=== PATIENT | female | born 1985 | race African-American/Black ===

== ENCOUNTER 2019-08-26 12:59 | Observation (INO) | payer MEDICAID ==
[~2019-08-26] VITALS: Ht 170.2 cm; Wt 92.5 kg
[2019-08-26] MEDS ORDERED: PREN1TAB78 MT (14:23)
[2019-08-26 14:52] LABS: CLARITY URINE CLEAR (CLEAR); COLOR URINE YELLOW (YELLOW); KETONES URINE NEGATIVE (NEGATIVE); LEUKOCYTE ESTERASE URINE 1+ (NEGATIVE); NITRITE URINE NEGATIVE (NEGATIVE); OCCULT BLOOD URINE NEGATIVE (NEGATIVE); PROTEIN URINE NEGATIVE (NEGATIVE); SPECIFIC GRAVITY URINE 1.024 (1.005-1.030)
== END 2019-08-26 15:45 | disposition home or self-care (01) ==
LOC: 8 EST LDRP 12:59
PROVIDERS: ADMIT Obstetrics & Gynecology; ATTEND Obstetrics & Gynecology
DX: O26.893 Other specified pregnancy related conditions, third trimester (principal); R10.30 Lower abdominal pain, unspecified; Z3A.20 20 weeks gestation of pregnancy
CPT/HCPCS: 81003; 99281; G0378

== ENCOUNTER 2019-09-24 12:06 | Emergency (ER) | payer MEDICAID ==
[~2019-09-24] VITALS: Ht 167.6 cm; Wt 84.0 kg
[~2019-09-24 12:06] MED LIST: PREN1TAB78 MT
[2019-09-24] MEDS ORDERED: SODIUM CHLORIDE 0.9% 1,000 ML IV ONE (12:24)
[2019-09-24] MEDS ORDERED: DILTIAZEM HCL 5MG/ML 5ML VIAL IV ONE (12:30)
[2019-09-24 12:47] LABS: BASOPHILS % 0.4 % (0.0-2.0); EOSINOPHILS % 0.7 % (0.0-5.0); HEMATOCRIT. 33.1 % (36.0-48.0); HEMOGLOBIN. 10.9 g/dL (12.0-16.0); LYMPHOCYTES % 18.9 % (20.0-50.0); MEAN CORPUSCULAR HEMOGLOBIN 27.8 pg (28.0-32.0); MEAN CORPUSCULAR VOLUME 84.4 fL (81.0-99.0); MEAN PLATELET VOLUME 9.3 fl (7.4-10.4); MONOCYTES % 7.9 % (2.0-8.0); NEUTROPHILS % 72.1 % (40.0-76.0); PLATELET 217 x1000/uL (130-400); RED BLOOD CELL COUNT 3.93 mill/uL (4.2-5.4)
[2019-09-24 12:54] LABS: CHLORIDE 113 mEq/L (98-107)
[2019-09-24 12:58] LABS: PROTHROMBIN TIME 10.2 sec (9.6-11.0)
[2019-09-24 13:18] LABS: CLARITY URINE CLEAR (CLEAR); COLOR URINE YELLOW (YELLOW); KETONES URINE NEGATIVE (NEGATIVE); LEUKOCYTE ESTERASE URINE TRACE (NEGATIVE); NITRITE URINE NEGATIVE (NEGATIVE); OCCULT BLOOD URINE NEGATIVE (NEGATIVE); PROTEIN URINE NEGATIVE (NEGATIVE); SPECIFIC GRAVITY URINE 1.005 (1.005-1.030); UROBILINOGEN URINE 0.2 E.U./dL (0.2-1.0)
[2019-09-24 16:30] VITALS: BP 131/71
== END 2019-09-24 16:44 | disposition home or self-care (01) ==
LOC: ER 12:06
DX: O99.412 Diseases of the circulatory system complicating pregnancy, second trimester (principal); I47.1 Supraventricular tachycardia; Z3A.24 24 weeks gestation of pregnancy
CPT/HCPCS: 36415; 76805; 80053; 81003; 83880; 84484; 85025; 85610; 93005; 96374; 99285; J3490; J7030

== ENCOUNTER 2019-10-03 21:43 | Observation (INO) | payer MEDICAID ==
[2019-10-03] MEDS ORDERED: PREN-182 PO (23:42)
== END 2019-10-04 00:15 | disposition home or self-care (01) ==
LOC: 8 EST LDRP 21:43
PROVIDERS: ADMIT Obstetrics & Gynecology; ATTEND Obstetrics & Gynecology
DX: O26.92 Pregnancy related conditions, unspecified, second trimester (principal); Z3A.26 26 weeks gestation of pregnancy
CPT/HCPCS: 99281; G0378

== ENCOUNTER 2024-10-27 11:50 | Emergency (ER) | payer MEDICAID ==
[~2024-10-27] VITALS: Ht 160 cm; Wt 77.0 kg
[~2024-10-27 11:50] MED LIST changes: +PREN-182 PO
[2024-10-27 11:57] VITALS: O2SAT 98
[2024-10-27 12:36] LABS: BASOPHILS % 0.6 % (0.0-2.0); EOSINOPHILS % 1.6 % (0.0-5.0); HEMATOCRIT. 35.4 % (36.0-48.0); HEMOGLOBIN. 11.5 g/dL (12.0-16.0); LYMPHOCYTES % 22.3 % (20.0-50.0); MEAN PLATELET VOLUME 9.4 fl (7.4-10.4); MONOCYTES % 8.1 % (2.0-8.0); NEUTROPHILS % 67.4 % (40.0-76.0); PLATELET 238 x1000/uL (130-400); RED BLOOD CELL COUNT 4.28 mill/uL (4.2-5.4); RED CELL DISTRIBUTION WIDTH 14.3 % (11.6-14.6)
[2024-10-27 12:47] LABS: CLARITY URINE CLOUDY (CLEAR); COLOR URINE YELLOW (YELLOW); GLUCOSE URINE NEGATIVE (NEGATIVE); KETONES URINE TRACE (NEGATIVE); LEUKOCYTE ESTERASE URINE 3+ (NEGATIVE); NITRITE URINE NEGATIVE (NEGATIVE); OCCULT BLOOD URINE 2+ (NEGATIVE); PH URINE 7.0 (4.5-8.0); PROTEIN URINE 1+ (NEGATIVE); SPECIFIC GRAVITY URINE 1.018 (1.005-1.030); UROBILINOGEN URINE 1.0 E.U./dL (0.2-1.0)
[2024-10-27 12:55] LABS: HCG SCREEN POSITIVE
[2024-10-27 13:03] LABS: CREATININE 0.8 mg/dL (0.6-1.0); UREA NITROGEN BLOOD 8 mg/dL (9-23)
[2024-10-27 13:08] LABS: BACTERIA URINE 3+; SQUAMOUS EPITHELIAL CELL URINE 3+ /lpf (RARE/1+); WBC URINE TNTC /hpf (0-2); YEAST URINE NONE SEEN
[2024-10-27 13:16] LABS: B-HCG QUANTITATIVE 93752 mIU/mL (<6)
[2024-10-27 14:10] VITALS: BP 138/68; PULSE 65; RESP 12; TEMP 36.8; O2SAT 98
== END 2024-10-27 14:13 | disposition home or self-care (01) ==
LOC: ER 11:50
DX: O20.0 Threatened abortion (principal); Z3A.01 Less than 8 weeks gestation of pregnancy
CPT/HCPCS: 36415; 76801; 80048; 81003; 81025; 84702; 84703; 85025; 86850; 86900; 99284

== ENCOUNTER 2024-10-29 15:21 | Emergency (ER) | payer MEDICAID ==
[~2024-10-29] VITALS: Ht 170.2 cm; Wt 100.0 kg
[2024-10-29 15:40] VITALS: O2SAT 95
[2024-10-29 16:16] LABS: COLOR URINE YELLOW (YELLOW); GLUCOSE URINE NEGATIVE (NEGATIVE); KETONES URINE TRACE (NEGATIVE); LEUKOCYTE ESTERASE URINE 1+ (NEGATIVE); NITRITE URINE NEGATIVE (NEGATIVE); OCCULT BLOOD URINE NEGATIVE (NEGATIVE); PH URINE 6.0 (4.5-8.0); PROTEIN URINE NEGATIVE (NEGATIVE); SPECIFIC GRAVITY URINE 1.025 (1.005-1.030); UROBILINOGEN URINE 1.0 E.U./dL (0.2-1.0)
[2024-10-29 16:28] LABS: CREATININE 0.8 mg/dL (0.6-1.0); UREA NITROGEN BLOOD 11 mg/dL (9-23)
[2024-10-29 16:30] LABS: ASPARTATE AMINOTRANSFERASE 15 IU/L (<34); BILIRUBIN DIRECT < 0.1 mg/dL (<=3.0); BILIRUBIN TOTAL 0.3 mg/dL (0.1-1.0); PROTEIN TOTAL 7.2 g/dL (6.0-8.3)
[2024-10-29 16:33] LABS: BASOPHILS % 0.8 % (0.0-2.0); EOSINOPHILS % 2.1 % (0.0-5.0); HEMATOCRIT. 38.1 % (36.0-48.0); HEMOGLOBIN. 12.5 g/dL (12.0-16.0); LYMPHOCYTES % 23.9 % (20.0-50.0); MEAN PLATELET VOLUME 9.5 fl (7.4-10.4); MONOCYTES % 8.2 % (2.0-8.0); NEUTROPHILS % 65.0 % (40.0-76.0); PLATELET 242 x1000/uL (130-400); RED BLOOD CELL COUNT 4.63 mill/uL (4.2-5.4); RED CELL DISTRIBUTION WIDTH 14.4 % (11.6-14.6)
[2024-10-29 16:39] LABS: CLARITY URINE HAZY (CLEAR)
[2024-10-29 16:44] LABS: B-HCG QUANTITATIVE 94397 mIU/mL (<6)
[2024-10-29 16:55] LABS: BACTERIA URINE 1+; RBC URINE NONE SEEN /hpf (0-2); SQUAMOUS EPITHELIAL CELL URINE 2+ /lpf (RARE/1+)
[2024-10-29] MEDS: ACETAMINOPHEN 325MG TABLET PO ONE (17:18)
[2024-10-29] MEDS ORDERED: CEPH500T MT (17:21)
[2024-10-29 19:16] VITALS: BP 149/95; PULSE 86; RESP 12; TEMP 36.8; O2SAT 100
== END 2024-10-29 19:21 | disposition home or self-care (01) ==
LOC: ER 15:21
DX: O26.891 Other specified pregnancy related conditions, first trimester (principal); O23.41 Unspecified infection of urinary tract in pregnancy, first trimester; R10.9 Unspecified abdominal pain; Z3A.12 12 weeks gestation of pregnancy
CPT/HCPCS: 36415; 76801; 80048; 80076; 81003; 84702; 85025; 86850; 86900; 99284

== ENCOUNTER 2025-01-18 11:48 | Emergency (ER) | payer MEDICAID ==
[~2025-01-18] VITALS: Ht 167.6 cm; Wt 96.0 kg
[~2025-01-18 11:48] MED LIST changes: +CEPH500T MT
[2025-01-18 11:53] VITALS: BP 146/50; TEMP 36.5; O2SAT 100
[2025-01-18 12:07] VITALS: PULSE 93; RESP 18; O2SAT 99
[2025-01-18 13:59] LABS: BASOPHILS % 0.6 % (0.0-2.0); EOSINOPHILS % 1.1 % (0.0-5.0); HEMATOCRIT. 32.2 % (36.0-48.0); HEMOGLOBIN. 10.6 g/dL (12.0-16.0); LYMPHOCYTES % 19.6 % (20.0-50.0); MEAN PLATELET VOLUME 9.6 fl (7.4-10.4); MONOCYTES % 7.8 % (2.0-8.0); NEUTROPHILS % 70.9 % (40.0-76.0); PLATELET 230 x1000/uL (130-400); RED BLOOD CELL COUNT 3.80 mill/uL (4.2-5.4); RED CELL DISTRIBUTION WIDTH 14.3 % (11.6-14.6)
[2025-01-18 14:16] LABS: CREATININE 0.8 mg/dL (0.6-1.0); UREA NITROGEN BLOOD 9 mg/dL (9-23)
[2025-01-18 14:49] LABS: B-HCG QUANTITATIVE 19573 mIU/mL (<6)
[2025-01-18] MEDS ORDERED: CEPH500T MT (15:39)
== END 2025-01-18 15:58 | disposition home or self-care (01) ==
LOC: ER 11:48
DX: O23.42 Unspecified infection of urinary tract in pregnancy, second trimester (principal); N39.0 Urinary tract infection, site not specified; N89.8 Other specified noninflammatory disorders of vagina; Z79.899 Other long term (current) drug therapy; Z98.890 Other specified postprocedural states; Z3A.24 24 weeks gestation of pregnancy
CPT/HCPCS: 36415; 76805; 80048; 84702; 85025; 99284

== ENCOUNTER 2025-02-20 20:29 | Emergency (ER) | payer MEDICAID ==
[~2025-02-20] VITALS: Ht 170.2 cm; Wt 96.0 kg
[2025-02-20 20:49] VITALS: O2SAT 99
[2025-02-20 21:36] LABS: BASOPHILS % 0.5 % (0.0-2.0); EOSINOPHILS % 0.7 % (0.0-5.0); HEMATOCRIT. 31.5 % (36.0-48.0); HEMOGLOBIN. 10.2 g/dL (12.0-16.0); LYMPHOCYTES % 19.6 % (20.0-50.0); MEAN PLATELET VOLUME 9.7 fl (7.4-10.4); MONOCYTES % 7.4 % (2.0-8.0); NEUTROPHILS % 71.8 % (40.0-76.0); PLATELET 212 x1000/uL (130-400); RED BLOOD CELL COUNT 3.69 mill/uL (4.2-5.4); RED CELL DISTRIBUTION WIDTH 14.2 % (11.6-14.6)
[2025-02-20 21:47] LABS: INR 1.0
[2025-02-20 21:56] LABS: HCG SCREEN POSITIVE
[2025-02-20 21:59] LABS: CREATININE 0.7 mg/dL (0.6-1.0)
[2025-02-20 22:00] LABS: ETHANOL BLOOD < 10 mg/dL (<10); PROTEIN TOTAL 6.3 g/dL (6.0-8.3); UREA NITROGEN BLOOD 5 mg/dL (9-23)
[2025-02-20 22:01] LABS: ASPARTATE AMINOTRANSFERASE 13 IU/L (<34)
[2025-02-20 22:02] LABS: BILIRUBIN DIRECT < 0.1 mg/dL (<=3.0); BILIRUBIN TOTAL 0.3 mg/dL (0.1-1.0)
[2025-02-20 22:10] VITALS: BP 126/72; PULSE 96; RESP 20; TEMP 37.2; O2SAT 100
[2025-02-20 22:18] LABS: CLARITY URINE CLOUDY (CLEAR); COLOR URINE YELLOW (YELLOW); GLUCOSE URINE NEGATIVE (NEGATIVE); KETONES URINE NEGATIVE (NEGATIVE); LEUKOCYTE ESTERASE URINE NEGATIVE (NEGATIVE); NITRITE URINE NEGATIVE (NEGATIVE); OCCULT BLOOD URINE NEGATIVE (NEGATIVE); PH URINE 7.0 (4.5-8.0); PROTEIN URINE NEGATIVE (NEGATIVE); SPECIFIC GRAVITY URINE 1.014 (1.005-1.030); UROBILINOGEN URINE 1.0 E.U./dL (0.2-1.0)
[2025-02-20 22:26] LABS: *AMPHETAMINES SCREEN URINE NEGATIVE (NEGATIVE); *BARBITURATES SCREEN URINE NEGATIVE (NEGATIVE); *BENZODIAZEPINES SCREEN URINE NEGATIVE (NEGATIVE); *COCAINE SCREEN URINE NEGATIVE (NEGATIVE); CANNABINOID URINE SCREEN NEGATIVE (NEGATIVE); ECSTASY MDMA SCREEN URINE NEGATIVE (NEGATIVE); METHADONE URINE SCREEN NEGATIVE (NEGATIVE); OPIATES URINE SCREEN NEGATIVE (NEGATIVE); PHENCYCLIDINE URINE SCREEN NEGATIVE (NEGATIVE)
[2025-02-20 22:30] LABS: BACTERIA URINE 1+; RBC URINE NONE SEEN /hpf (0-2); SQUAMOUS EPITHELIAL CELL URINE FEW /lpf (RARE/1+); WBC URINE 0-2 /hpf (0-2)
[2025-02-22 04:12] LABS: HSV TYPE 2 SPECIFIC AB IGG Non Reactive (Non Reactive)
[2025-02-25 04:10] LABS: CHLAMYDIA TRACHOMATIS NAA Negative (Negative); NEISSERIA GONORRHOEAE NAA Negative (Negative)
== END 2025-02-20 22:38 | disposition short-term general hospital (02) ==
LOC: ER 20:29
DX: O26.893 Other specified pregnancy related conditions, third trimester (principal); Z3A.29 29 weeks gestation of pregnancy; Z79.899 Other long term (current) drug therapy
CPT/HCPCS: 86695; 86696; 87491; 87591; 80076; 80305; 80048; 81003; 80320; 84703; 84702; 83735; 85025; 85610; 85730; 86850; 86900; 86901; 87340; 86592; 86593; 36415; 76815; 99285; Z7610 ×2; G0480

== ENCOUNTER → 2025-03-05 | Emergency (ER) | payer MEDICAID ==
[2025-03-05 18:53] LABS: BASOPHILS % 0.6 % (0.0-2.0); EOSINOPHILS % 1.0 % (0.0-5.0); HEMATOCRIT. 32.0 % (36.0-48.0); HEMOGLOBIN. 10.5 g/dL (12.0-16.0); LYMPHOCYTES % 19.7 % (20.0-50.0); MEAN PLATELET VOLUME 9.7 fl (7.4-10.4); MONOCYTES % 8.6 % (2.0-8.0); NEUTROPHILS % 70.1 % (40.0-76.0); PLATELET 224 x1000/uL (130-400); RED BLOOD CELL COUNT 3.79 mill/uL (4.2-5.4); RED CELL DISTRIBUTION WIDTH 13.8 % (11.6-14.6)
[2025-03-05 19:10] LABS: INR 0.9
[2025-03-05 19:13] LABS: CREATININE 0.8 mg/dL (0.6-1.0); UREA NITROGEN BLOOD 5 mg/dL (9-23)
[2025-03-05 19:14] LABS: ETHANOL BLOOD < 10 mg/dL (<10); PROTEIN TOTAL 6.3 g/dL (6.0-8.3)
[2025-03-05 19:15] LABS: ASPARTATE AMINOTRANSFERASE 14 IU/L (<34); BILIRUBIN DIRECT < 0.1 mg/dL (<=3.0)
[2025-03-05] MEDS: PENICILLIN G BENZATHINE 2,400,000 UNITS/4ML SYR IM ONE (19:15)
[2025-03-05 19:16] LABS: BILIRUBIN TOTAL 0.3 mg/dL (0.1-1.0)
[2025-03-05 19:17] LABS: HCG SCREEN POSITIVE
[2025-03-05] MEDS: SODIUM CHLORIDE 0.9% 1,000 ML IV ONE (19:25)
[2025-03-05] MEDS: ACETAMINOPHEN 1000MG/100ML 100 ML IV ONE (19:25)
[2025-03-05 19:26] LABS: B-HCG QUANTITATIVE 29098 mIU/mL (<6)
[2025-03-05 20:41] LABS: CLARITY URINE CLEAR (CLEAR); COLOR URINE YELLOW (YELLOW); GLUCOSE URINE NEGATIVE (NEGATIVE); KETONES URINE NEGATIVE (NEGATIVE); LEUKOCYTE ESTERASE URINE NEGATIVE (NEGATIVE); NITRITE URINE NEGATIVE (NEGATIVE); OCCULT BLOOD URINE NEGATIVE (NEGATIVE); PH URINE 7.0 (4.5-8.0); PROTEIN URINE NEGATIVE (NEGATIVE); SPECIFIC GRAVITY URINE 1.010 (1.005-1.030); UROBILINOGEN URINE 0.2 E.U./dL (0.2-1.0)
[2025-03-05 20:48] LABS: *AMPHETAMINES SCREEN URINE NEGATIVE (NEGATIVE); *BARBITURATES SCREEN URINE NEGATIVE (NEGATIVE); *BENZODIAZEPINES SCREEN URINE NEGATIVE (NEGATIVE); *COCAINE SCREEN URINE NEGATIVE (NEGATIVE); CANNABINOID URINE SCREEN NEGATIVE (NEGATIVE); METHADONE URINE SCREEN NEGATIVE (NEGATIVE); OPIATES URINE SCREEN NEGATIVE (NEGATIVE); PHENCYCLIDINE URINE SCREEN NEGATIVE (NEGATIVE)
[2025-03-05 20:49] LABS: ECSTASY MDMA SCREEN URINE NEGATIVE (NEGATIVE)
[2025-03-05 21:36] VITALS: BP 148/86; PULSE 86; RESP 20; O2SAT 100
== END | disposition short-term general hospital (02) ==
LOC: ER 18:17
DX: O26.893 Other specified pregnancy related conditions, third trimester (principal); R10.20 Pelvic and perineal pain unspecified side; Z3A.32 32 weeks gestation of pregnancy; Z79.899 Other long term (current) drug therapy
CPT/HCPCS: 80076; 80305; 80048; 81003; 80320; 84703; 84702; 83735; 85025; 85610; 85730; 86850; 86900; 86901; 36415; 76815; 96365; 96372; 99285; J0561; J7030; G0480; J0131